=== PATIENT | male | born 1955 | race Caucasian/White ===

== ENCOUNTER 2019-07-16 12:04 | Emergency (ER) | payer MEDICARE ==
[~2019-07-16] VITALS: Ht 180.3 cm; Wt 63.5 kg
[~2019-07-16 12:04] MED LIST: HYDACE10B PO; PANT40 PO; QUET25; QUET300 PO
[2019-07-16 12:50] LABS: Calcium, Ionized (POC) 1.14 mmol/L (1.10-1.46); Chloride (POC) 102 mmol/L (98-108); Creatinine (POC) 0.6 mg/dL (0.8-1.3); Glucose (ISTAT POC) 103 mg/dL (70-99); Hemoglobin (POC) 11.6 g/dL (13.5-17.5); Potassium (POC) 3.3 mmol/L (3.5-5.5); Sodium (POC) 139 mmol/L (135-148); Total CO2 (POC) 24 mmol/L (21-32)
[2019-07-16] MEDS ORDERED: CHLO25 PO (14:09)
== END 2019-07-16 14:26 | disposition home or self-care (01) ==
LOC: ER 12:04
PROVIDERS: Emergency Medicine
DX: F10.239 Alcohol dependence with withdrawal, unspecified (principal); F10.229 Alcohol dependence with intoxication, unspecified; F17.200 Nicotine dependence, unspecified, uncomplicated; F32.9 Major depressive disorder, single episode, unspecified; G89.4 Chronic pain syndrome
CPT/HCPCS: 36415; 80047; 85014; 93005; 93010; 96361; 96374; 96376; 99284-25; J2060; J7030

== ENCOUNTER 2020-05-13 16:57 | Observation (INO) | payer MEDICARE ==
[~2020-05-13] VITALS: Ht 177.8 cm; Wt 86.2 kg
[~2020-05-13 16:57] MED LIST changes: +CHLO25 PO
[2020-05-13 17:43] LABS: BASOPHILS ABSOLUTE AUTO 0.12 K/mm3 (0.00-0.23); BASOPHILS PERCENT AUTO 2 % (0-2); EOSINOPHILS ABSOLUTE AUTO 0.03 K/mm3 (0.00-0.68); EOSINOPHILS PERCENT AUTO 1 % (0-6); Hematocrit 38.3 % (37.0-53.0); Hemoglobin 13.4 g/dL (13.5-17.5); IMMATURE GRAN ABSOLUTE AUTO 0.04 K/mm3 (0.00-0.10); IMMATURE GRAN PERCENT AUTO 1 % (0-1); LYMPHOCYTES ABSOLUTE AUTO 3.52 K/mm3 (0.84-5.20); LYMPHOCYTES PERCENT AUTO 59 % (21-46); MONOCYTES ABSOLUTE AUTO 0.82 K/mm3 (0.16-1.47); MONOCYTES PERCENT AUTO 14 % (4-13); Mean Corpuscular HGB 32.1 pg (26.0-34.0); Mean Corpuscular Volume 92 fL (80-100); Mean Platelet Volume 11.2 fL (9.1-12.4); NEUTROPHILS ABSOLUTE AUTO 1.42 K/mm3 (1.96-9.15); NEUTROPHILS PERCENT AUTO 24 % (41-73); RDW Coefficient Variation 15.6 % (11.7-14.2); RDW Standard Deviation 52.9 fL (35.1-46.3); Red Blood Cell Count 4.18 M/mm3 (4.30-5.90); White Blood Cell Count 5.95 K/mm3 (4.00-11.30)
[2020-05-13 17:50] LABS: Alanine Aminotransfer (ALT/SGP 154 U/L (12-78); Albumin, Blood 3.6 g/dL (3.4-5.0); Albumin/Globulin Ratio 0.8 (0.8-1.8); Alk Phos 91 U/L (50-136); Anion Gap 12 mmol/L (6-16); Aspartate Aminotrans (AST/SGOT 324 U/L (12-37); Bilirubin, Total 0.5 mg/dL (0.1-1.0); Blood Urea Nitrogen 15 mg/dL (8-24); Bun/Creatinine Ratio 20.9 (12.0-20.0); CO2, Blood 23 mmol/L (21-32); Calcium, Blood 8.4 mg/dL (8.5-10.1); Chloride, Blood 109 mmol/L (98-108); Creatinine, Blood 0.72 mg/dL (0.60-1.20); Globulin, Blood 4.3 g/dL (2.2-4.0); Glomerular Filtration Rate >60 (60-); Glucose, Blood 122 mg/dL (70-99); Potassium, Blood 3.8 mmol/L (3.5-5.5); Sodium, Blood 144 mmol/L (136-145); Total Protein, Blood 7.9 g/dL (6.4-8.2)
[2020-05-13 17:56] LABS: Ethanol (Alcohol), Blood, Med 615 mg/dL
[2020-05-13 19:56] LABS: Platelet Count 80 K/mm3 (150-400)
[2020-05-13] MEDS ORDERED: ACAMPROSATE CA333 MG PO (21:39)
[2020-05-13] MEDS ORDERED: Naltrexone HCl50 MG PO (21:39)
[2020-05-13] MEDS ORDERED: GABA100 PO (21:39)
[2020-05-13] MEDS ORDERED: FOLI1 PO (21:40)
[2020-05-13] MEDS ORDERED: PANT40 PO (21:40)
[2020-05-13] MEDS ORDERED: B-1100 M1 PO (21:44)
[2020-05-14] MEDS ORDERED: CHLO25 PO (02:07)
== END 2020-05-14 04:18 | disposition home or self-care (01) ==
LOC: ER 16:57 → EOR 16:58
PROVIDERS: Emergency Medicine; ADMIT Emergency Medicine
DX: F10.129 Alcohol abuse with intoxication, unspecified (principal); Y90.8 Blood alcohol level of 240 mg/100 ml or more; F17.200 Nicotine dependence, unspecified, uncomplicated; F32.9 Major depressive disorder, single episode, unspecified; G89.4 Chronic pain syndrome
CPT/HCPCS: 36415; 70450; 71045; 80053; 82140; 83735; 85025; 93005; 93010; 96361; 96374; 99285-25; G0378; G0480; J2405; J7030

== ENCOUNTER 2020-07-27 09:44 | Inpatient (IN) | payer MEDICARE ==
[~2020-07-27] VITALS: Ht 182.9 cm; Wt 75.9 kg
[~2020-07-27 09:44] MED LIST changes: +ACAMPROSATE CA333 MG PO; +B-1100 M1 PO; +FOLI1 PO; +GABA100 PO; +Naltrexone HCl50 MG PO
[2020-07-27 10:40] LABS: BASOPHILS ABSOLUTE AUTO 0.25 K/mm3 (0.00-0.23); BASOPHILS PERCENT AUTO 1 % (0-2); EOSINOPHILS ABSOLUTE AUTO 0.03 K/mm3 (0.00-0.68); EOSINOPHILS PERCENT AUTO 0 % (0-6); Hematocrit 41.8 % (37.0-53.0); Hemoglobin 13.7 g/dL (13.5-17.5); IMMATURE GRAN ABSOLUTE AUTO 0.07 K/mm3 (0.00-0.10); IMMATURE GRAN PERCENT AUTO 0 % (0-1); LYMPHOCYTES ABSOLUTE AUTO 3.74 K/mm3 (0.84-5.20); LYMPHOCYTES PERCENT AUTO 21 % (21-46); MONOCYTES ABSOLUTE AUTO 1.83 K/mm3 (0.16-1.47); MONOCYTES PERCENT AUTO 10 % (4-13); Mean Corpuscular HGB 31.9 pg (26.0-34.0); Mean Corpuscular HGB Conc 32.8 g/dL (31.5-36.5); Mean Corpuscular Volume 97 fL (80-100); Mean Platelet Volume 9.2 fL (9.1-12.4); NEUTROPHILS ABSOLUTE AUTO 11.91 K/mm3 (1.96-9.15); NEUTROPHILS PERCENT AUTO 67 % (41-73); Platelet Count 418 K/mm3 (150-400); RDW Coefficient Variation 13.8 % (11.7-14.2); RDW Standard Deviation 49.9 fL (35.1-46.3); White Blood Cell Count 17.83 K/mm3 (4.00-11.30)
[2020-07-27 10:42] LABS: International Normalized Ratio 0.94; Prothrombin Time Results 10.1 Sec (9.7-11.5)
[2020-07-27 10:55] LABS: Alanine Aminotransfer (ALT/SGP 15 U/L (12-78); Albumin, Blood 3.4 g/dL (3.4-5.0); Albumin/Globulin Ratio 0.8 (0.8-1.8); Alk Phos 76 U/L (50-136); Anion Gap 13 mmol/L (6-16); Aspartate Aminotrans (AST/SGOT 22 U/L (12-37); Bilirubin, Total 0.6 mg/dL (0.1-1.0); Blood Urea Nitrogen 13 mg/dL (8-24); Bun/Creatinine Ratio 15.3 (12.0-20.0); CO2, Blood 18 mmol/L (21-32); Calcium, Blood 8.7 mg/dL (8.5-10.1); Chloride, Blood 109 mmol/L (98-108); Creatinine, Blood 0.85 mg/dL (0.60-1.20); Glomerular Filtration Rate >60 (60-); Glucose, Blood 97 mg/dL (70-99); Potassium, Blood 3.6 mmol/L (3.5-5.5); Sodium, Blood 140 mmol/L (136-145); Total Protein, Blood 7.4 g/dL (6.4-8.2)
[2020-07-27 12:09] LABS: Source, Urine Clean Catch
[2020-07-27 12:34] LABS: Appearance, Urine Clear (Clear); Bilirubin, Urine Neg (Neg); Blood, Urine Neg (Neg); Color, Urine Yellow (P-Yellow); Glucose Qualitative, Urine Neg (Neg); Ketones, Urine 1+ (Neg); Leukocyte Esterase, Urine Neg (Neg); Nitrite, Urine Pos (Neg); Protein, Urine Neg (Neg); Specific Gravity, Urine 1.015 (1.003-1.022); Urobilinogen, Urine NORM (Normal)
[2020-07-27 12:46] LABS: Bacteria Many /hpf; Red Blood Cells, Urine 0-2 /hpf (0-2); Squamous Epithelial Cells Few /hpf (Few); White Blood Cells, Urine 0-2 /hpf (0-5)
[2020-07-27 14:49] LABS: U Amphetamine Screen Not Detected; U Barbituate Screen Not Detected; U Benzodiazapine Screen Not Detected; U Buprenorphine Screen Not Detected; U Cannabinoids Screen Not Detected; U Cocaine Screen Not Detected; U Methadone Screen Not Detected; U Methamphetamine Screen Not Detected; U Opiates Screen Not Detected; U Oxycodone Screen Not Detected; U Phencyclidine Screen Not Detected; U Propoxyphene Screen Not Detected
[2020-07-27 15:47] LABS: Base Excess Venous -8.1 mmol/L; Bicarbonate Venous 17.7 mmol/L (24.0-30.0); PCO2 Venous 41.4 mmHg (38-42); PO2 Venous 39.6 mmHg (38-42); pH Blood Venous 7.27 (7.34-7.37)
--- NOTE | 2020-07-27 19:20 | NUR ---
SHIFT SUMMARY: PT IS NEW ADMIT FROM ER THIS AFTERNOON, ARRIVES A&OX4, SR-ST ON MONITOR, RESP EVEN AND UNLABORED ON ROOM AIR. PT ADMITTED FOR SEVERE SEPSIS AND C/O RECTAL BLEEDING X3 DAYS. PT ALSO STATES DAILY CONSUMPTION OF APPROX 1 PINT VODKA. AT THIS TIME PT C/O NAUSEA, DENIES VOMITING, SLIGHT TREMORS, AMBULATES INDEPENDENTLY TO RESTROOM. GI CONSULT PENDING. PALLIATIVE CARE HAS BEEN NOTIFIED OF CONSULT. REPORT GIVEN TO ABDELRAHMAN DARLING.
[2020-07-27 21:32] LABS: Adenovirus F 40/41 Not Detected (NOT DETECT); Astrovirus Not Detected (NOT DETECT); Campylobacter Sp Not Detected (NOT DETECT); Cryptosporidium Not Detected (NOT DETECT); Cyclospora Cayetanensis Not Detected (NOT DETECT); E. Coli O157 Not Detected (NOT DETECT); Entamoeba Histolytica Not Detected (NOT DETECT); Enteroaggregative E. coli-EAEC Not Detected (NOT DETECT); Enteropathogenic E. coli-EPEC Not Detected (NOT DETECT); Enterotoxigenic E. coli-ETEC Not Detected (NOT DETECT); Giardia Lamblia Not Detected (NOT DETECT); Norovirus GI/GII Not Detected (NOT DETECT); Plesiomonas Shigelloides Not Detected (NOT DETECT); Rotavirus A Not Detected (NOT DETECT); Salmonella Sp Not Detected (NOT DETECT); Sapovirus Not Detected (NOT DETECT); Shiga Toxin-prod E. coli-STEC Not Detected (NOT DETECT); Shigella/Enteroin E. coli-EIEC Not Detected (NOT DETECT); Vibrio Cholerae Not Detected (NOT DETECT); Vibrio Sp Not Detected (NOT DETECT); Yersinia Enterocolitica Not Detected (NOT DETECT)
[2020-07-28 04:16] LABS: BASOPHILS ABSOLUTE AUTO 0.13 K/mm3 (0.00-0.23); BASOPHILS PERCENT AUTO 1 % (0-2); EOSINOPHILS ABSOLUTE AUTO 0.02 K/mm3 (0.00-0.68); EOSINOPHILS PERCENT AUTO 0 % (0-6); Hematocrit 33.3 % (37.0-53.0); Hemoglobin 11.2 g/dL (13.5-17.5); IMMATURE GRAN ABSOLUTE AUTO 0.06 K/mm3 (0.00-0.10); IMMATURE GRAN PERCENT AUTO 1 % (0-1); LYMPHOCYTES ABSOLUTE AUTO 1.65 K/mm3 (0.84-5.20); LYMPHOCYTES PERCENT AUTO 14 % (21-46); MONOCYTES ABSOLUTE AUTO 0.99 K/mm3 (0.16-1.47); MONOCYTES PERCENT AUTO 8 % (4-13); Mean Corpuscular HGB 31.6 pg (26.0-34.0); Mean Corpuscular HGB Conc 33.6 g/dL (31.5-36.5); Mean Corpuscular Volume 94 fL (80-100); Mean Platelet Volume 9.8 fL (9.1-12.4); NEUTROPHILS ABSOLUTE AUTO 8.95 K/mm3 (1.96-9.15); NEUTROPHILS PERCENT AUTO 76 % (41-73); Platelet Count 343 K/mm3 (150-400); RDW Coefficient Variation 13.3 % (11.7-14.2); RDW Standard Deviation 46.1 fL (35.1-46.3); Red Blood Cell Count 3.54 M/mm3 (4.30-5.90)
[2020-07-28 04:35] LABS: Alanine Aminotransfer (ALT/SGP 11 U/L (12-78); Albumin, Blood 2.7 g/dL (3.4-5.0); Albumin/Globulin Ratio 0.8 (0.8-1.8); Alk Phos 61 U/L (50-136); Anion Gap 7 mmol/L (6-16); Aspartate Aminotrans (AST/SGOT 12 U/L (12-37); Bilirubin, Total 1.2 mg/dL (0.1-1.0); Blood Urea Nitrogen 6 mg/dL (8-24); Bun/Creatinine Ratio 8.4 (12.0-20.0); CO2, Blood 24 mmol/L (21-32); Calcium, Blood 7.9 mg/dL (8.5-10.1); Chloride, Blood 106 mmol/L (98-108); Creatinine, Blood 0.72 mg/dL (0.60-1.20); Globulin, Blood 3.4 g/dL (2.2-4.0); Glomerular Filtration Rate >60 (60-); Glucose, Blood 104 mg/dL (70-99); Potassium, Blood 3.5 mmol/L (3.5-5.5); Sodium, Blood 137 mmol/L (136-145); Total Protein, Blood 6.1 g/dL (6.4-8.2)
--- NOTE | 2020-07-28 07:35 | NUR ---
SHIFT SUMMARY PT HAS BEEN WITHDRAWING FROM ETOH. CIWA SCORES RANGED FROM 7-17. MODERATE TO MORE SEVERE TREMORS, VAUSEA WITH DRY HEAVING SUBSIDED WITH PRN ATIVAN AND LIBRIUM. PT WAS ON SEIZURE PRECAUTIONS BUT HAD NO SEZIURE ACTIVITY T/O SHIFT. PT WAS ABLE TO AMBULATE TO TOILET, BOWEL MOVEMENTS WERE CLEAR RED LIQUID <100ML EACH TIME. PT STATED HAVING ABD PAIN AND STOMACH PAIN. ABD WAS TENDER AND NON RIDGID. BP WAS HYPERTENSIVE CLIMBING TO 172/101 BY END OF SHIFT. DAY SHIFT NURSE NITIFIED OF TREND. HR LOW 100'S. O2 SATS IN THE 90'S ON ROOM AIR. PT CURRENTLY SLEEPING AND HAS BEEN ON CLEAR LIQUID DIET. WILL CONTINUE TO MONITOR UNTIL SHIFT CHANGE.
--- NOTE | 2020-07-28 13:56 | NUR ---
Spiritual care visit conducted. Patient is lying in bed and alert. Patient tells me about his GI bleed, and his family friend support [place]. Patient talks about being a member of [employer] and about his struggle to stay with his timi. I normalize patient's experience, reinforce helpful attitudes and practices (patient says he reads Bible and walks 5 to 10 miles daily) and provide therapeutic listening, pastoral family and marriage counsellor and prayer. Patient responds well and shows signs of restored timi. I will continue to deal with the spiritual/emotional aspects of moving toward a healthy life style.
--- NOTE | 2020-07-28 18:38 | NUR ---
PT SUMMARY: PT REMAINED ALERT AND ORIENTED AT BASELINE. VITALS HRR SR/ST 90-120'S, BP SYSTOLIC 160'S, SATS ABOVE 95% ON RA, AFEBRILE. PT HAS BEEN RESTING MOST OF THE SHIFT CIWA 8-10, LIBRIUM GIVEN PRN FOR WITHDRAWALS. TREMORS STILL PRESENT MOSTLY WITH MOVEMENTS, MILD HEADACHE AND NAUSEA WITH NO EMESIS. PT REMAINED ON CLEAR LIQUID DIET D/T COLITIS ON BOWEL REST AT THIS TIME. PT C/O ABD PAIN BY THE END OF THE SHIFT 01/07 NEW ORDER RECEIVED FOR FENTANYL 12.5-25MCG Q3HRS FOR PAIN. X1 DOSE GIVEN AND WAS EFFECTIVE. PT HAD BOWEL MOVEMENT TODAY BROWN IN COLOR BUT DOES HAVE SCANT OF PINKISH BLOOD IN IT. PT IS NOW IN BED RESTING WAS IN TO VISIT EARLIER, BANANA BAG RUNNING AT 200MLS/HR. BED ALARM ON FOR SAFETY CALL LIGHTS IN REACH WILL REPORT TO ONCOMING SHIFT
[2020-07-29 04:05] LABS: BASOPHILS ABSOLUTE AUTO 0.12 K/mm3 (0.00-0.23); BASOPHILS PERCENT AUTO 1 % (0-2); EOSINOPHILS ABSOLUTE AUTO 0.21 K/mm3 (0.00-0.68); EOSINOPHILS PERCENT AUTO 2 % (0-6); Hematocrit 33.1 % (37.0-53.0); Hemoglobin 11.3 g/dL (13.5-17.5); IMMATURE GRAN ABSOLUTE AUTO 0.06 K/mm3 (0.00-0.10); IMMATURE GRAN PERCENT AUTO 1 % (0-1); LYMPHOCYTES PERCENT AUTO 15 % (21-46); MONOCYTES ABSOLUTE AUTO 0.76 K/mm3 (0.16-1.47); MONOCYTES PERCENT AUTO 6 % (4-13); Mean Corpuscular HGB 32.6 pg (26.0-34.0); Mean Corpuscular HGB Conc 34.1 g/dL (31.5-36.5); Mean Corpuscular Volume 95 fL (80-100); NEUTROPHILS ABSOLUTE AUTO 9.59 K/mm3 (1.96-9.15); NEUTROPHILS PERCENT AUTO 76 % (41-73); Platelet Count 282 K/mm3 (150-400); RDW Coefficient Variation 13.6 % (11.7-14.2); RDW Standard Deviation 47.7 fL (35.1-46.3); Red Blood Cell Count 3.47 M/mm3 (4.30-5.90); White Blood Cell Count 12.64 K/mm3 (4.00-11.30)
[2020-07-29 04:30] LABS: Alanine Aminotransfer (ALT/SGP 11 U/L (12-78); Albumin, Blood 2.5 g/dL (3.4-5.0); Albumin/Globulin Ratio 0.7 (0.8-1.8); Alk Phos 54 U/L (50-136); Anion Gap 7 mmol/L (6-16); Aspartate Aminotrans (AST/SGOT 12 U/L (12-37); Bilirubin, Total 1.1 mg/dL (0.1-1.0); Blood Urea Nitrogen 2 mg/dL (8-24); Bun/Creatinine Ratio 2.9 (12.0-20.0); CO2, Blood 25 mmol/L (21-32); Calcium, Blood 7.3 mg/dL (8.5-10.1); Chloride, Blood 108 mmol/L (98-108); Globulin, Blood 3.4 g/dL (2.2-4.0); Glomerular Filtration Rate >60 (60-); Glucose, Blood 90 mg/dL (70-99); Potassium, Blood 2.8 mmol/L (3.5-5.5); Sodium, Blood 140 mmol/L (136-145); Total Protein, Blood 5.9 g/dL (6.4-8.2)
--- NOTE | 2020-07-29 06:04 | NUR ---
SHIFT SUMMARY PATIENT IS ALERT AND ORIENTED X4. VITAL SIGNS STABLE, ON ROOM AIR AND CALLING APPROPRIATLY. ON TELE - SR/ST WITH HR AVERAGING 90's. SLIGHTLY ANXIOUS AND AGITATED THIS SHIFT WHEN AWAKE. CIWA SCORES RANGED FROM 4-8, MEDICATED WITH LIBRIUM X1 SEE EMAR. IMPULSIVE WHEN UP TO BATHROOM, BED ALARM ON. COMPLAINING OF LEFT LOWER QUADRANT PAIN, WITH GOOD RELIEF FROM 25MCG FENTANYL. 3 BM's TODAY. LIQUID, WITH NO VISIBLE BLOOD. SEIZURE PRECAUTIONS STILL IN PLACE. NO ACUTE CHANGE IN H&H. POTASSIUM THIS AM 2.8, DR. HELM NOTIFIED AND ORDERS PLACED. NS RUNNING AT 100 ML/HR IN LEFT FORARM IV. WILL CONTINUE TO MONITOR.
[2020-07-29 11:42] LABS: Potassium, Blood 3.4 mmol/L (3.5-5.5)
--- NOTE | 2020-07-29 17:12 | NUR ---
PT SUMMARY: NO ACUTE CHANGE FOR THE SHIFT. VITALS STABLE. PT REMAINED ALERT. CIWA SCORE AT 5, LIBRIUM 25MG X2 DOSES WAS GIVEN. PAIN MEDICINE X1. PT WAS GIVEN BED BATH AND REQUESTED TO AMBULATE IN THE UNIT, PT STILL HAS MILD TREMORS AMBULATED WELL VIA WALKER. PT HAS BEEN RESTING MOST OF THE SHIFT, HAD LOOSE BM WITH NO BLOOD AND IS BROWN IN COLOR. PT REMAINS ON CLEAR LIQUID DIET AND BOWEL REST. ABLE TO MAKE NEEDS KNOWN, CALL LIGHTS IN REACH WILL MONITOR
--- NOTE | 2020-07-30 06:15 | NUR ---
SHIFT SUMMARY PT SLEPT T/O SHIFT. CIWA SCORES STABLE, UNDER 8. PT REPORTS PAIN IN ABDOMEN. MEDICATIONS GIVEN PER EMAR. PT REPORTS RELIEF. PT ALERT AND ORIENTED X 4. BED ALARM IN PLACE D/T ETOH WITHDRAWAL. SEIZURE PADS IN PLACE FOR PRECAUTION. OXYGEN SATURATION MAINTAINED ABOVE 92% ON RA. BP STABLE. HR STABLE. PT REPORTS NO CP OR PRESSURE. WILL CONTINUE TO MONITOR UNTIL REPORT GIVEN TO DAYSHIFT RN.
[2020-07-30 06:38] LABS: Albumin, Blood 2.3 g/dL (3.4-5.0); Anion Gap 7 mmol/L (6-16); Blood Urea Nitrogen 2 mg/dL (8-24); Bun/Creatinine Ratio 2.9 (12.0-20.0); CO2, Blood 22 mmol/L (21-32); Calcium, Blood 7.6 mg/dL (8.5-10.1); Chloride, Blood 112 mmol/L (98-108); Creatinine, Blood 0.69 mg/dL (0.60-1.20); Glomerular Filtration Rate >60 (60-); Glucose, Blood 95 mg/dL (70-99); Phosphorus, Blood 2.7 mg/dL (2.5-4.9); Sodium, Blood 141 mmol/L (136-145)
--- NOTE | 2020-07-30 17:04 | NUR ---
NO ACUTE EVENTS THIS SHIFT. PATIENT IS ALERT AND ORIENTED, VSS. CIWA RANGED 1-3 THIS SHIFT. PATIENT ENDORSED FEELING NAUSEAS AT TIMES, BUT DECLINED ZOFRAN UNTIL THIS AFTERNOON. PATIENT ENDORSED ABDOMINAL TENDERNESS IN LLQ, HEAT/COLD APPLICATION OFFERED WELL PAIN RELIEF PER EMAR, PATIENT DECLINED, STATED THAT BRACING WAS "WORKING FINE." PATIENT IS EXCITED TO ADVANCE DIET TO FULL LIQUID TODAY, TOLERATING WELL.
--- NOTE | 2020-07-30 17:29 | NUR ---
REPORT GIVEN TO ODALYS QUICK ON MEDICAL.
--- NOTE | 2020-07-30 18:17 | NUR ---
A+O, VERY TALKATIVE, pain on l side of abdmn, not much s/sx of ciwa, abx infusing in to l wrist, still on full liquid diet, medicated for abdmn pain
[2020-07-31 05:02] LABS: BASOPHILS ABSOLUTE AUTO 0.14 K/mm3 (0.00-0.23); BASOPHILS PERCENT AUTO 2 % (0-2); EOSINOPHILS ABSOLUTE AUTO 0.44 K/mm3 (0.00-0.68); EOSINOPHILS PERCENT AUTO 5 % (0-6); Hemoglobin 11.6 g/dL (13.5-17.5); IMMATURE GRAN ABSOLUTE AUTO 0.16 K/mm3 (0.00-0.10); IMMATURE GRAN PERCENT AUTO 2 % (0-1); LYMPHOCYTES PERCENT AUTO 26 % (21-46); MONOCYTES ABSOLUTE AUTO 0.86 K/mm3 (0.16-1.47); MONOCYTES PERCENT AUTO 9 % (4-13); Mean Corpuscular HGB 32.3 pg (26.0-34.0); Mean Corpuscular HGB Conc 33.1 g/dL (31.5-36.5); Mean Corpuscular Volume 98 fL (80-100); Mean Platelet Volume 9.9 fL (9.1-12.4); NEUTROPHILS ABSOLUTE AUTO 5.39 K/mm3 (1.96-9.15); NEUTROPHILS PERCENT AUTO 57 % (41-73); Platelet Count 296 K/mm3 (150-400); RDW Coefficient Variation 13.5 % (11.7-14.2); RDW Standard Deviation 48.4 fL (35.1-46.3); Red Blood Cell Count 3.59 M/mm3 (4.30-5.90); White Blood Cell Count 9.49 K/mm3 (4.00-11.30)
[2020-07-31 05:20] LABS: Anion Gap 4 mmol/L (6-16); Blood Urea Nitrogen 3 mg/dL (8-24); Bun/Creatinine Ratio 3.9 (12.0-20.0); CO2, Blood 25 mmol/L (21-32); Calcium, Blood 8.4 mg/dL (8.5-10.1); Chloride, Blood 110 mmol/L (98-108); Creatinine, Blood 0.78 mg/dL (0.60-1.20); Glomerular Filtration Rate >60 (60-); Glucose, Blood 112 mg/dL (70-99); Potassium, Blood 3.6 mmol/L (3.5-5.5); Sodium, Blood 139 mmol/L (136-145)
--- NOTE | 2020-07-31 06:15 | NUR ---
SHIFT SUMMARY PATIENT ALERT AND ORIENTED. WAS MEDICATED ONCE PER EMAR FOR PAIN. PATIENT IS WEAK AND SHUFFLES WHEN WHALKING TO THE BATHROOM AND HE SEEMED TO HAVE POOR BALANCE. PATIENT ENCOURAGED TO USE URINAL AT BEDSIDE OVERNIGHT FOR SAFETY AND TO PREVENT FALLS. IV PATENT AND FLUSHED. BED IN LOWEST POSITION WITH WHEELS LOCKED AND ALARM ON. CALL LIGHT WITHIN REACH. REPORT GIVEN TO ONCOMING RN.
--- NOTE | 2020-07-31 17:18 | NUR ---
SUMMARY PT SITTING UP IN BED WATCHING TV, PT HAS BEEN PLEASANT AND COOPERATIVE WITH CARE, PT FORGETFUL, OCC REPEATS QUESTIONS, MED PER EMAR FOR PAIN, PT DENIES NAUSEA, DIET ADVANCE, PT JOVANI WELL, VSS, NO ACUTE CHANGES, WILL CONT TO MONITOR
--- NOTE | 2020-08-01 04:20 | NUR ---
Zi slept through the whole shift last night waking only to get OOB to use bathroom (twice), Medicated once with 0.25 fentanyl for LLQ pain. after bowel movement. Patient stated no blood in stool, CIWA score was a one after checking twice. Will speak with Day RN about getting CIWA dc'd.
[2020-08-01 06:34] LABS: Anion Gap 5 mmol/L (6-16); Blood Urea Nitrogen 13 mg/dL (8-24); Bun/Creatinine Ratio 13.5 (12.0-20.0); CO2, Blood 28 mmol/L (21-32); Chloride, Blood 107 mmol/L (98-108); Creatinine, Blood 0.97 mg/dL (0.60-1.20); Glomerular Filtration Rate >60 (60-); Glucose, Blood 101 mg/dL (70-99); Potassium, Blood 3.9 mmol/L (3.5-5.5); Sodium, Blood 140 mmol/L (136-145)
--- NOTE | 2020-08-01 11:11 | NUR ---
HE HAS HAD NO BM OR RECTAL BLOOD OVERNIGHT OR THIS AM. ROUNDED. BOWEL ORDERS RECEIVED. PATIENT TOOK COLACE SENNA AND MIRALAX. NO OUTPUT YET. HE ATE 2 SERVINGS OF BREAKFAST. NO NAUSEA. PLAN TO DISCHARGE THIS AFTERNOON.
[2020-08-01] MEDS ORDERED: AMOCLA500 PO (11:46)
[2020-08-01] MEDS ORDERED: METR500 PO (11:47)
[2020-08-01] MEDS ORDERED: PROM25 PO (11:48)
--- NOTE | 2020-08-01 13:36 | NUR ---
DISCHARGED TO HOME WITH BELONGINGS AND INSTRUCTIONS. HE UNDERSTANDS HE HAS 3 RX'S AT [facility] AND THAT HE IS ASKED TO STOP ALCOHOL INTAKE. HE ALSO WAS INSTRUCTED TO TAKE HIS MED LIST TO HIS PCP AND IF HIS BP IS HIGH IN THE OFFICE TO TELL THEM IT WAS HIGH HERE TOO AND HE IS NOT ON ANY MEDICATION FOR IT.
[2020-11-11] MEDS ORDERED: SUCR1 PO (18:56)
== END 2020-08-01 13:13 | disposition home or self-care (01) | DRG 871 ==
LOC: ER 09:44 → PCU 14:29 → MEDS 07-30 17:40
PROVIDERS: Family Medicine; Internal Medicine; Nurse Practitioner Acute Care; Physician Assistant; Student in an Organized Health Care Education/Training Program; ADMIT Internal Medicine
DX: A41.9 Sepsis, unspecified organism (principal); K55.039 Acute (reversible) ischemia of large intestine, extent unspecified; E87.2 Acidosis; A09 Infectious gastroenteritis and colitis, unspecified; R65.20 Severe sepsis without septic shock; K21.9 Gastro-esophageal reflux disease without esophagitis; K64.8 Other hemorrhoids; E87.6 Hypokalemia; F17.210 Nicotine dependence, cigarettes, uncomplicated; G89.4 Chronic pain syndrome; F32.9 Major depressive disorder, single episode, unspecified; K44.9 Diaphragmatic hernia without obstruction or gangrene; F10.229 Alcohol dependence with intoxication, unspecified; Y90.8 Blood alcohol level of 240 mg/100 ml or more; Z86.19 Personal history of other infectious and parasitic diseases; Z79.899 Other long term (current) drug therapy; Z86.010 Personal history of colon polyps
CPT/HCPCS: 0097U; 36415; 71045; 74177; 80048; 80053; 80069; 81001; 82803; 83605; 83735; 84100; 84132; 85025; 85610; 85651; 85730; 86140; 86850; 86900; 86901; 87040; 87086; 93005; 93010; 96365-59; 96375; 96376; 99285-25; A9270; C9113; G0480; J1170; J2060; J2405; J2543; J3010; J3411; J3475; J3480; J7030; J7042; J7050; J7120; Q9967

== ENCOUNTER 2020-09-19 18:13 | Inpatient (IN) | payer MEDICARE ==
[~2020-09-19] VITALS: Ht 182.9 cm; Wt 77.9 kg
[~2020-09-19 18:13] MED LIST changes: +AMOCLA500 PO; +METR500 PO; +PROM25 PO
[2020-09-19 18:51] LABS: BASOPHILS ABSOLUTE AUTO 0.06 K/mm3 (0.00-0.23); BASOPHILS PERCENT AUTO 1 % (0-2); EOSINOPHILS PERCENT AUTO 0 % (0-6); Hematocrit 34.2 % (37.0-53.0); Hemoglobin 12.2 g/dL (13.5-17.5); IMMATURE GRAN ABSOLUTE AUTO 0.26 K/mm3 (0.00-0.10); IMMATURE GRAN PERCENT AUTO 2 % (0-1); LYMPHOCYTES ABSOLUTE AUTO 2.94 K/mm3 (0.84-5.20); LYMPHOCYTES PERCENT AUTO 22 % (21-46); MONOCYTES ABSOLUTE AUTO 1.23 K/mm3 (0.16-1.47); MONOCYTES PERCENT AUTO 9 % (4-13); Mean Corpuscular HGB 32.4 pg (26.0-34.0); Mean Corpuscular HGB Conc 35.7 g/dL (31.5-36.5); Mean Corpuscular Volume 91 fL (80-100); Mean Platelet Volume 11.1 fL (9.1-12.4); NEUTROPHILS PERCENT AUTO 66 % (41-73); NRBC ABSOLUTE 0.02 K/mm3 (0.00-0.02); NRBC Auto 0.2 /100 WBC (0.0-0.2); Platelet Count 108 K/mm3 (150-400); RDW Standard Deviation 46.5 fL (35.1-46.3); Red Blood Cell Count 3.76 M/mm3 (4.30-5.90); White Blood Cell Count 13.29 K/mm3 (4.00-11.30)
[2020-09-19 19:29] LABS: Alanine Aminotransfer (ALT/SGP 47 U/L (12-78); Albumin, Blood 3.4 g/dL (3.4-5.0); Albumin/Globulin Ratio 0.8 (0.8-1.8); Alk Phos 81 U/L (50-136); Anion Gap 11 mmol/L (6-16); Aspartate Aminotrans (AST/SGOT 43 U/L (12-37); Bilirubin, Total 0.5 mg/dL (0.1-1.0); Blood Urea Nitrogen 23 mg/dL (8-24); Bun/Creatinine Ratio 30.7 (12.0-20.0); CO2, Blood 26 mmol/L (21-32); Calcium, Blood 8.7 mg/dL (8.5-10.1); Chloride, Blood 98 mmol/L (98-108); Creatinine, Blood 0.75 mg/dL (0.60-1.20); Glomerular Filtration Rate >60 (60-); Glucose, Blood 174 mg/dL (70-99); Potassium, Blood 3.3 mmol/L (3.5-5.5); Sodium, Blood 135 mmol/L (136-145); Total Protein, Blood 7.4 g/dL (6.4-8.2); Troponin I <0.015 ng/mL (0.000-0.040)
[2020-09-19 19:32] LABS: Magnesium, Blood 2.2 mg/dL (1.6-2.4)
[2020-09-19] MEDS ORDERED: ACET325 PO (22:02)
[2020-09-19] MEDS ORDERED: [UNRECOGNIZED DRUG - REMARK] PO (22:05)
[2020-09-20 05:34] LABS: Hematocrit 29.1 % (37.0-53.0); Hemoglobin 10.4 g/dL (13.5-17.5); Mean Corpuscular HGB 32.4 pg (26.0-34.0); Mean Corpuscular HGB Conc 35.7 g/dL (31.5-36.5); Mean Corpuscular Volume 91 fL (80-100); Mean Platelet Volume 11.6 fL (9.1-12.4); NRBC ABSOLUTE 0.03 K/mm3 (0.00-0.02); NRBC Auto 0.3 /100 WBC (0.0-0.2); Platelet Count 88 K/mm3 (150-400); RDW Coefficient Variation 13.8 % (11.7-14.2); RDW Standard Deviation 45.6 fL (35.1-46.3); Red Blood Cell Count 3.21 M/mm3 (4.30-5.90); White Blood Cell Count 11.75 K/mm3 (4.00-11.30)
[2020-09-20 05:54] LABS: Anion Gap 11 mmol/L (6-16); Blood Urea Nitrogen 23 mg/dL (8-24); Bun/Creatinine Ratio 37.9 (12.0-20.0); CO2, Blood 24 mmol/L (21-32); Calcium, Blood 8.2 mg/dL (8.5-10.1); Chloride, Blood 103 mmol/L (98-108); Creatinine, Blood 0.61 mg/dL (0.60-1.20); Glomerular Filtration Rate >60 (60-); Glucose, Blood 205 mg/dL (70-99); Magnesium, Blood 2.2 mg/dL (1.6-2.4); Potassium, Blood 3.4 mmol/L (3.5-5.5); Sodium, Blood 138 mmol/L (136-145)
[2020-09-20 11:55] LABS: Hemoglobin 9.6 g/dL (13.5-17.5)
--- NOTE | 2020-09-20 13:20 | NUR ---
RECIEVED REPORT FROM MONSERRAT PATEL RN AT 1313. PATIENT TO TRANSFER TO ROOM PCU 14
--- NOTE | 2020-09-20 15:42 | NUR ---
PATIENT ARRIVED TO ROOM PCU 14 AT 1327 FROM THE ER. PATIENT ARRIVED IN DEEP SLEEP/SEDATION FROM ATIVAN AND LIBRIUM ADMINISTERED D/T WITHDRAWLS. PATIENT UNABLE TO PARTICIPATE IN ADMISSION ASSESSMENT/H&P OR MED REC HOWEVER PATIENT'S GIRLFRIEND CAME UP TO THE ROOM AND PROVIDED A SMALL AMOUNT OF INFORMATION REGARDING THE PATIENT. PATIENT DRINKS 750cc VODKA/DAY. HE HAS HAD 3 FALLS IN THE PAST 2 DAYS. BLACK EYE TO LEFT EYE. NO N/V/D SINCE ADMITTING TO THE FLOOR. PATIENT SEEMS TO ROUSE WHEN HE HAS TO VOID AND ATTEMPTS TO CLIMB OUT OF BED A NORMAL RESPONSE. PATIENT HAS VOIDED IN THE URINAL TWICE THUS FAR WITH STAFF ASSIST. BED ALARM IS ON. CALL LIGHT WITHIN REACH.
[2020-09-20 18:33] LABS: Hematocrit 30.3 % (37.0-53.0); Hemoglobin 10.3 g/dL (13.5-17.5)
--- NOTE | 2020-09-20 18:48 | NUR ---
CIWA DONE ON PATIENT BEST POSSIBLE WITH PATIENTS CURRENT STATE OF MENTATION AND GOT SCORE OF 17. WAS ABLE TO GET PATIENT TO WAKE ENOUGH TO TAKE SCHEDULED DOSE OF LIBRIUM AND 2MG IV LORAZEPAM.
[2020-09-20 23:09] LABS: BASOPHILS ABSOLUTE AUTO 0.06 K/mm3 (0.00-0.23); BASOPHILS PERCENT AUTO 1 % (0-2); EOSINOPHILS ABSOLUTE AUTO 0.04 K/mm3 (0.00-0.68); EOSINOPHILS PERCENT AUTO 1 % (0-6); Hematocrit 29.1 % (37.0-53.0); Hemoglobin 9.9 g/dL (13.5-17.5); IMMATURE GRAN ABSOLUTE AUTO 0.08 K/mm3 (0.00-0.10); IMMATURE GRAN PERCENT AUTO 1 % (0-1); LYMPHOCYTES ABSOLUTE AUTO 2.02 K/mm3 (0.84-5.20); LYMPHOCYTES PERCENT AUTO 24 % (21-46); MONOCYTES ABSOLUTE AUTO 1.09 K/mm3 (0.16-1.47); MONOCYTES PERCENT AUTO 13 % (4-13); Mean Corpuscular HGB 31.8 pg (26.0-34.0); Mean Corpuscular Volume 94 fL (80-100); Mean Platelet Volume 11.6 fL (9.1-12.4); NEUTROPHILS PERCENT AUTO 60 % (41-73); NRBC ABSOLUTE 0.03 K/mm3 (0.00-0.02); NRBC Auto 0.4 /100 WBC (0.0-0.2); Platelet Count 79 K/mm3 (150-400); RDW Coefficient Variation 14.1 % (11.7-14.2); RDW Standard Deviation 47.2 fL (35.1-46.3); Red Blood Cell Count 3.11 M/mm3 (4.30-5.90); White Blood Cell Count 8.29 K/mm3 (4.00-11.30)
[2020-09-21 04:17] LABS: BASOPHILS ABSOLUTE AUTO 0.06 K/mm3 (0.00-0.23); BASOPHILS PERCENT AUTO 1 % (0-2); EOSINOPHILS ABSOLUTE AUTO 0.06 K/mm3 (0.00-0.68); EOSINOPHILS PERCENT AUTO 1 % (0-6); Hemoglobin 9.7 g/dL (13.5-17.5); IMMATURE GRAN ABSOLUTE AUTO 0.14 K/mm3 (0.00-0.10); IMMATURE GRAN PERCENT AUTO 2 % (0-1); LYMPHOCYTES ABSOLUTE AUTO 2.34 K/mm3 (0.84-5.20); LYMPHOCYTES PERCENT AUTO 31 % (21-46); MONOCYTES ABSOLUTE AUTO 0.79 K/mm3 (0.16-1.47); MONOCYTES PERCENT AUTO 10 % (4-13); Mean Corpuscular HGB 31.9 pg (26.0-34.0); Mean Corpuscular HGB Conc 33.4 g/dL (31.5-36.5); Mean Corpuscular Volume 95 fL (80-100); Mean Platelet Volume 11.8 fL (9.1-12.4); NEUTROPHILS ABSOLUTE AUTO 4.26 K/mm3 (1.96-9.15); NEUTROPHILS PERCENT AUTO 56 % (41-73); NRBC ABSOLUTE 0.03 K/mm3 (0.00-0.02); NRBC Auto 0.4 /100 WBC (0.0-0.2); Platelet Count 81 K/mm3 (150-400); RDW Standard Deviation 48.7 fL (35.1-46.3); Red Blood Cell Count 3.04 M/mm3 (4.30-5.90); White Blood Cell Count 7.65 K/mm3 (4.00-11.30)
[2020-09-21 04:34] LABS: Alanine Aminotransfer (ALT/SGP 27 U/L (12-78); Albumin, Blood 2.5 g/dL (3.4-5.0); Albumin/Globulin Ratio 0.8 (0.8-1.8); Alk Phos 52 U/L (50-136); Anion Gap 6 mmol/L (6-16); Aspartate Aminotrans (AST/SGOT 29 U/L (12-37); Bilirubin, Total 0.7 mg/dL (0.1-1.0); Blood Urea Nitrogen 11 mg/dL (8-24); Bun/Creatinine Ratio 15.6 (12.0-20.0); CO2, Blood 29 mmol/L (21-32); Calcium, Blood 8.1 mg/dL (8.5-10.1); Chloride, Blood 102 mmol/L (98-108); Creatinine, Blood 0.71 mg/dL (0.60-1.20); Globulin, Blood 3.3 g/dL (2.2-4.0); Glomerular Filtration Rate >60 (60-); Glucose, Blood 133 mg/dL (70-99); Magnesium, Blood 1.8 mg/dL (1.6-2.4); Potassium, Blood 3.6 mmol/L (3.5-5.5); Sodium, Blood 137 mmol/L (136-145); Total Protein, Blood 5.8 g/dL (6.4-8.2)
--- NOTE | 2020-09-21 06:08 | NUR ---
SHIFT SUMMARY PT ALERT TO SELF AND CITY. UNSURE OF DATE AND THAT HE IS ADMITTED TO THE HOSPITAL. CIWA SCORE 6-15. MEDICATED PER EMAR. HR STABLE. BP STABLE. OXYGEN SATURATION MAINTAINED ABOVE 92% ON 3 L OF OXYGEN VIA NC. PT ABLE TO TURN SELF IN BED NEEDED. DEPENDS IN PLACE FOR INCONTINENCE. BED ALARM IN PLACE FOR PT SAFETY. WILL CONTINUE TO MONITOR UNTIL REPORT GIVEN TO DAYSHIFT RN.
[2020-09-21 13:17] LABS: Influenza A, PCR NEGATIVE (NEGATIVE); Influenza B, PCR NEGATIVE (NEGATIVE); Resp Syncytial Virus, PCR NEGATIVE (NEGATIVE); SARS-Cov-2 (COVID-19) PCR, MMC NEGATIVE (NEGATIVE)
--- NOTE | 2020-09-21 15:51 | NUR ---
UPDATE: PT TAKEN TO FOR UPPER ENDO SCOPE VIA GURNEY.
--- NOTE | 2020-09-21 16:44 | NUR ---
09/21/20 1644 Pascual Jimenez PATIENT DETERMINED TO BE ASA APPROPRIATE FOR PROPOFOL SEDATION PRIOR TO START OF PROCEDURE BY DR. DILLARD. Bite Block Placed. 3-LEAD EKG REVIEWED WITH PHYSICIAN PRIOR TO START OF PROCEDURE. Patient to ENDO 1 History, Chart, Medications and Allergies reviewed before start of procedure. MONITOR INTACT WITH CONTINUOUS PULSE OXIMETRY AND INTERMITTENT BP. MONITOR INTACT WITH CONTINUOUS PULSE OXIMETRY AND INTERMITTENT BP.
--- NOTE | 2020-09-21 18:05 | NUR ---
SHIFT SUMMARY: PT ALERT TO HIMSELF. ABLE TO STATE HE IS IN [facility] AT [facility]. EGD DONE TODAY. SLEEPY AND LETHARGIC MOST OF SHIFT. SPEECH IS VERY SOFT AND PT STATES HE IS LOSING HIS VOICE. ON 0-3L OF O2 SATING ABOVE 92%. WHEN SLEEPING PT TENDS TO DESAT AROUND 88% AND O2 APPLIED. RECOVERS WELL. TELE SHOWING SINUS RHYTHM. PT STATES "IF IM BEING HONEST, I AM HAVING HALLUCINATIONS THIS AM". CIWA SCORES 8-13 THIS SHIFT. VITAL SIGNS STABLE. NO ACUTE CHANGES. SEIZURTE PRECAUTIONS MAINTAINED. OCTREOTIDE CONTINUALLY INFUSING AT 25ML/HR AND LR AT 75 ML/HR. POST EGD, DIET ADVANCED TOLERATED. DENIES PAIN. WILL CONTINUE TO MONITOR AND REPORT OFF.
--- NOTE | 2020-09-22 05:27 | NUR ---
SHIFT SUMMARY PT DROWSY UPON CARE ASSUMPTION, OPENING EYES FOR SHORT TIME WHEN WOKEN W/ VERBAL STIMULI W/ TOUCH. PT SPEECH GARBLED & SLURRED W/ DIFFICULTY UNDERSTANDING. PT SPEECH NOW MORE CLEAR W/ PT ABLE TO TALK IN SENTENCES. PT STILL HOWEVER INTERMITTENTLY CONFUSED. CIWA 6-9 THIS SHIFT, MEDICATED PER EMAR. VSS. SPO2 > 92% ON 2-3L NC THIS SHIFT. MONITOR SHOWS SR-ST W/ PAC's, HR 80's-110's. PT INCONTINENT, WEARING ATTENDS. PRN MARCIANO CARE/ATTENDS CHANGES PROVIDED. BED ALARM ON.
[2020-09-22 07:09] LABS: HBSAG SCREEN Negative (Negative); HEP B CORE AB, TOT Negative (Negative); HEP C VIRUS AB <0.1 (0.0-0.9)
[2020-09-22 09:19] LABS: Hematocrit 27.7 % (37.0-53.0); Hemoglobin 9.7 g/dL (13.5-17.5)
--- NOTE | 2020-09-22 11:19 | NUR ---
ATTEMPTING TO GET PATIENT OUT OF BED AND WALK; WHILE SITTING ON SIDE OF BED PT APPEARED TO HAVE LOST CONSCIOUSNESS, NOT RESPONDING TO VERBAL STIMULI; PT RESONDING TO PAINFUL STIMULI. PT ALERT, CONTINUES WITH CONFUSION AND GARBLED SPEECH; ABLE TO STAND WITH GAITBELT AND WALKER, UNABLE TO TAKE A STEP AND REPORTS NEEDING TO SIT DOWN. PT EXTREMELY WEAK. NOTIFIED DR CROUCH, ORDERS TO HOLD DISCHARGE AND TRANSFER TO MEDICAL WITH TELE. WILL CONTINUE TO MONITOR.
--- NOTE | 2020-09-22 17:23 | NUR ---
SHIFT SUMMARY PT A&O TO SELF. UNSURE OF WHERE HE IS, THE DATE, AND REASON FOR ADMISSION. CIWA 9-13. PT REPORTS HEADACHE THIS EVENING. PT DENIES CHEST PAIN, SOB, NAUSEA AND DIZZINESS. PT HAD POSSIBLE NEAR SYNCOPAL EPISODE THIS AM WHILE ATTEMPTING TO GET PT OUT OF BED. PT ON 2L O2 VIA NC THIS AM, TITRATED TO RA. VSS. NO OTHER ACUTE CHANGES NOTED DURING SHIFT. WILL CONTINUE TO MONITOR UNITL REPORT GIVEN TO ONCOMING RN.
--- NOTE | 2020-09-23 05:03 | NUR ---
SHIFT SUMMARY PT A&O TO SELF & LOCATION. VSS. MONITOR SHOWS SR-ST W/ PAC's, HR 90's-110. SPO2 > 92% ON RA. PT DENIES PAIN/DISCOMFORT. PT REQUESTING "A BUFFET" T/O SHIFT UPON EACH PT ENCOUNTER. PT REPORTS "I NEED TO GAIN WEIGHT, I'M GOING TO HIKE THE PCT IN 3 MONTHS." PT ONLY ABLE TO STAND AT BEDSIDE FOR SHORT DURATION D/T WEAKNESS. PT INCONTINENT, WEARING ATTENDS W/ 1 PARTIAL CONTINENT EPISODE W/ URINAL USE THIS SHIFT. BED ALARM ON D/T PT W/ MULT ATTEMPTS TO GET OUT OF BED W/ OUT ASSISTANCE & IS TOO WEAK TO STAND INDEPENDENTLY.
--- NOTE | 2020-09-23 07:42 | NUR ---
ASSUMED CARE OF PT- AT THE TIME OF SHIFT CHANGE THE PT SET OFF THE BED ALARM LADLE PULLER RESPONDED AND ASSISTED THE PT WITH ATTENDS CHANGE AND A URINAL. PER REPORT FROM LADLE PULLER PT HAD A SYNCOPAL EPISODE, STAFF ASSISTED HIM BACK TO BED, PT WOKE AND WAS SPEAKING TO STAFF AFTER THE EVENT BUT DECIDED HE WAS TIRED AND WANTED TO TAKE A NAP. PER TELE NO EVENTS WERE SEEN, BUSINESS OFFICE MANAGER REVIEWED THE TIME FRAME TO BE SURE. PT SLEEPING SOUNDLY WHEN THE ASSESSMENT WAS PERFORMED BUT WOKE AT THE END TO SPEAK TO BEDSIDE RN. HE IS ALERT BUT CONFUSED AT THIS TIME. WILL CTM.
[2020-09-23 09:23] LABS: Albumin, Blood 2.5 g/dL (3.4-5.0); Anion Gap 5 mmol/L (6-16); Blood Urea Nitrogen 15 mg/dL (8-24); Bun/Creatinine Ratio 21.9 (12.0-20.0); CO2, Blood 28 mmol/L (21-32); Calcium, Blood 8.4 mg/dL (8.5-10.1); Chloride, Blood 105 mmol/L (98-108); Creatinine, Blood 0.69 mg/dL (0.60-1.20); Glomerular Filtration Rate >60 (60-); Glucose, Blood 131 mg/dL (70-99); Magnesium, Blood 1.4 mg/dL (1.6-2.4); Phosphorus, Blood 3.4 mg/dL (2.5-4.9); Potassium, Blood 3.2 mmol/L (3.5-5.5); Sodium, Blood 138 mmol/L (136-145)
--- NOTE | 2020-09-23 18:18 | NUR ---
SHIFT SUMMARY- OTHER THAN HIS SYNCOPAL EPISODE THIS MORNING, PT HAS HAD NO ACUTE CHANGES T/O THE DAY. ECHO WAS COMPLETED TODAY PER DR CROUCH PLAN IS FOR DISCHARGE HOME TOMORROW IF PT HAS NO ACUTE CHANGE PRIOR. PT ALERT AND ORIENTED X2. PT HAS NO S&S OF DISTRESS ORTHOSTATIC VITALS DONE THIS AFTERNOON SHOWED SOME ORTHOSTATIC CHANGES IN SBP. DR GRANT. PT IS VERY IMPULSIVE, BED ALARM ON FOR SAFETY.
--- NOTE | 2020-09-23 20:59 | NUR ---
ASSUMED CARE RECIEVED REPORT FROM PRIOR RN.
--- NOTE | 2020-09-24 05:15 | NUR ---
SHIFT SUMMARY PT ALERT AND ORIENTED X 4. CONFUSED AT TIMES. IMPULSIVE AT TIMES. BED ALARM IN PLACE FOR SAFETY. HR STABLE. BP STABLE. OXYGEN SATURATION MAINTAINED ABOVE 92% ON RA. PT REPORTS NO CP OR PRESSURE. PT ABLE TO TURN SELF IN BED NEEDED. WILL CONTINUE TO MONITOR UNTIL REPORT GIVEN TO DAYSHIFT RN.
[2020-09-24 05:48] LABS: Albumin, Blood 2.4 g/dL (3.4-5.0); Anion Gap 6 mmol/L (6-16); Blood Urea Nitrogen 15 mg/dL (8-24); Bun/Creatinine Ratio 18.9 (12.0-20.0); CO2, Blood 26 mmol/L (21-32); Calcium, Blood 8.3 mg/dL (8.5-10.1); Chloride, Blood 107 mmol/L (98-108); Creatinine, Blood 0.79 mg/dL (0.60-1.20); Glomerular Filtration Rate >60 (60-); Glucose, Blood 110 mg/dL (70-99); Magnesium, Blood 2.1 mg/dL (1.6-2.4); Phosphorus, Blood 3.4 mg/dL (2.5-4.9); Potassium, Blood 4.4 mmol/L (3.5-5.5); Sodium, Blood 139 mmol/L (136-145)
[2020-09-24] MEDS ORDERED: GABA300 PO (15:02)
[2020-09-24] MEDS ORDERED: B-1100 M1 PO (15:03)
[2020-09-24] MEDS ORDERED: PANT40 PO (15:03)
[2020-09-24] MEDS ORDERED: METO25 PO (15:04)
--- NOTE | 2020-09-24 15:51 | NUR ---
PATIENT PROVIDED DISCHARGE INFO REGARDING REASONS TO RETURN TO THE HOSPITAL, FOLLOW UP PLANS, AND MEDICATION INFORMATION. PATIENT VERBALIZED UNDERSTANDING, VSS, NO SIGNS OF ACUTE DISTRESS.
[2020-11-11] MEDS ORDERED: SUCR1 PO (18:56)
== END 2020-09-24 16:22 | disposition home health service (06) | DRG 896 ==
LOC: ER 18:13 → ERHOLD 22:30 → PCU 22:30
PROVIDERS: Emergency Medicine; Internal Medicine; Internal Medicine Gastroenterology; ADMIT Internal Medicine
PROC: 0DB68ZX Excision of Stomach, Via Natural or Artificial Opening Endoscopic, Diagnostic (ICD-10-PCS; principal; 2020-09-21 16:30)
DX: F10.231 Alcohol dependence with withdrawal delirium (principal); K22.11 Ulcer of esophagus with bleeding; K26.4 Chronic or unspecified duodenal ulcer with hemorrhage; Z20.822 Contact with and (suspected) exposure to COVID-19; K44.9 Diaphragmatic hernia without obstruction or gangrene; I48.91 Unspecified atrial fibrillation; K21.9 Gastro-esophageal reflux disease without esophagitis; F32.9 Major depressive disorder, single episode, unspecified; G89.4 Chronic pain syndrome; D72.829 Elevated white blood cell count, unspecified; E87.6 Hypokalemia; K31.89 Other diseases of stomach and duodenum; E83.42 Hypomagnesemia; R55 Syncope and collapse; K70.9 Alcoholic liver disease, unspecified; Z66 Do not resuscitate; Z74.09 Other reduced mobility; Z79.899 Other long term (current) drug therapy; Z87.891 Personal history of nicotine dependence; Z87.11 Personal history of peptic ulcer disease
CPT/HCPCS: 0241U; 36415; 70450; 71045; 72125; 74177; 80048; 80053; 80069; 83690; 83735; 83880; 84484; 85014; 85018; 85025; 85027; 86317; 86704; 86708; 86803; 87340; 88305; 88342; 93005; 93010; 93306; 94762; 96361; 96374-59; 96376; 97110; 97112; 97116; 97162; 97166; 97530; 97535; 99285-25; A9270; C9113; G0480; J2060; J2250; J2354; J2405; J2704; J3411; J3475; J7042; J7050; J7060; J7120; Q9967

== ENCOUNTER 2020-11-11 17:15 | Emergency (ER) | payer MEDICARE ==
[~2020-11-11] VITALS: Ht 172.7 cm; Wt 77.1 kg
== END 2020-11-11 19:20 | disposition home or self-care (01) ==
LOC: ER 17:15
DX: K29.71 Gastritis, unspecified, with bleeding (principal); F10.229 Alcohol dependence with intoxication, unspecified; D53.9 Nutritional anemia, unspecified; Z79.899 Other long term (current) drug therapy
CPT/HCPCS: 80053; 82272; 83690; 83735; 85025; 85610; 86850; 86900; 86901; 96374; 99284-25; A9270; C9113; G0480; J7120